=== PATIENT | male | born 1985 | race Two or more races ===

== ENCOUNTER 2022-02-01 14:58 | Emergency (ER) | payer MEDICAID, OTHER ==
[~2022-02-01] VITALS: Ht 172.7 cm; Wt 77.2 kg
[2022-02-01 16:59] VITALS: BP 126/99
[2022-02-01] MEDS ORDERED: CIP03OS LEFTEYE (16:59)
== END 2022-02-01 17:10 | disposition home or self-care (01) ==
LOC: ER 14:58
DX: H10.32 Unspecified acute conjunctivitis, left eye (principal)

== ENCOUNTER 2022-02-08 21:12 | Emergency (ER) | payer MEDICAID, OTHER ==
[~2022-02-08] VITALS: Ht 172.7 cm; Wt 80.0 kg
[~2022-02-08 21:12] MED LIST: CIP03OS LEFTEYE
[2022-02-08 22:08] VITALS: BP 125/86
[2022-02-09] MEDS ORDERED: AMOX-277 PO (00:33)
[2022-02-09] MEDS ORDERED: NEOM0.1O7 OP (00:33)
== END 2022-02-09 01:26 | disposition home or self-care (01) ==
LOC: ER 21:12
DX: J32.9 Chronic sinusitis, unspecified (principal); H10.33 Unspecified acute conjunctivitis, bilateral; F12.10 Cannabis abuse, uncomplicated